=== PATIENT | male | born 1950 | race Caucasian/White ===

== ENCOUNTER 2018-12-17 17:19 | Inpatient (IN) | payer OTHER ==
[~2018-12-17] VITALS: Ht 180.3 cm; Wt 99.0 kg
[2018-12-17 17:39] VITALS: Ht 180.3 cm; Wt 99.0 kg
[2018-12-17 18:45] LABS: BASOPHIL % 0.3 % (0-2); PLATELET COUNT 286 x10^3mcL (130-400); RED CELL DISTRIBUTION WIDTH 17.2 % (11.5-14.5)
[2018-12-17] MEDS ORDERED: ATENOLOL100 MG PO (18:50)
[2018-12-17 18:51] LABS: CALCIUM 8.4 mg/dL (8.5-10.1); CARBON DIOXIDE 31.3 mmol/L (21-32); CREATININE SERUM 1.5 mg/dL (0.7-1.3)
[2018-12-17] MEDS ORDERED: [UNRECOGNIZED DRUG - OTHER] PO (18:52)
[2018-12-17] MEDS ORDERED: HYDROXYZINE HYD25 MG PO (18:53)
[2018-12-17] MEDS ORDERED: NEU300 PO (18:54)
[2018-12-17 18:56] LABS: ALBUMIN 3.6 g/dL (3.4-5.0); BILIRUBIN TOTAL 0.45 mg/dL (0.20-1.00); TOTAL PROTEIN, SERUM 6.6 g/dL (6.4-8.2)
[2018-12-17 19:15] LABS: PLATELET COUNT 275 x10^3mcL (130-400); RED CELL DISTRIBUTION WIDTH 17.5 % (11.5-14.5)
[2018-12-17 19:46] LABS: T3 TOTAL 0.97 ng/mL
[2018-12-17 20:06] LABS: FREE THYROXINE INDEX 2.4 ug/dL (1.4-4.5); T4(THYROXINE) 6.7 ug/dL (4.7-13.3)
[2018-12-17 20:22] LABS: CHOLESTEROL/HDL RATIO 3.4; PHOSPHOROUS 2.6 mg/dL (2.5-4.9)
[2018-12-17 21:41] VITALS: BP 129/62
[2018-12-17 22:43] VITALS: BP 198/93
[2018-12-18 01:01] LABS: microscopic required? YES; urine erythrocyte NEGATIVE (NEGATIVE)
[2018-12-18 01:11] LABS: AMPHETAMINE QUAL UR NONE DETECTED (See below)
[2018-12-18 04:05] VITALS: BP 114/67
[2018-12-18 06:36] LABS: CALCIUM 7.8 mg/dL (8.5-10.1); CARBON DIOXIDE 28.9 mmol/L (21-32); CREATININE SERUM 1.5 mg/dL (0.7-1.3); POTASSIUM SERUM 4.3 mmol/L (3.5-5.1)
[2018-12-18 06:52] LABS: BASOPHIL % 0.2 % (0-2); PLATELET COUNT 233 x10^3mcL (130-400)
[2018-12-18 07:36] LABS: RED CELL DISTRIBUTION WIDTH 17.2 % (11.5-14.5)
[2018-12-18 08:41] VITALS: BP 99/57
[2018-12-18 16:15] VITALS: BP 125/59
[2018-12-18 20:00] VITALS: BP 97/54
[2018-12-19 06:27] VITALS: BP 107/65
[2018-12-19 07:03] LABS: BASOPHIL % 0.1 % (0-2); PLATELET COUNT 195 x10^3mcL (130-400)
[2018-12-19 07:22] LABS: RED CELL DISTRIBUTION WIDTH 17.3 % (11.5-14.5)
[2018-12-19 07:28] LABS: CALCIUM 7.9 mg/dL (8.5-10.1); CARBON DIOXIDE 26.1 mmol/L (21-32); CREATININE SERUM 1.6 mg/dL (0.7-1.3); MAGNESIUM 1.7 mg/dL (1.8-2.4); PHOSPHOROUS 2.1 mg/dL (2.5-4.9); POTASSIUM SERUM 4.5 mmol/L (3.5-5.1)
[2018-12-19 09:19] VITALS: BP 96/53
[2018-12-19 17:01] VITALS: BP 109/55
[2018-12-19 20:46] VITALS: BP 105/49
[2018-12-20 05:41] VITALS: BP 99/60
[2018-12-20 06:56] LABS: BASOPHIL % 0.5 % (0-2); PLATELET COUNT 173 x10^3mcL (130-400)
[2018-12-20 07:23] LABS: CALCIUM 7.7 mg/dL (8.5-10.1); CARBON DIOXIDE 27.1 mmol/L (21-32); CREATININE SERUM 1.3 mg/dL (0.7-1.3); MAGNESIUM 1.8 mg/dL (1.8-2.4)
[2018-12-20 07:58] VITALS: BP 113/60
[2018-12-20 17:24] VITALS: BP 120/60
[2018-12-20 20:46] VITALS: BP 121/70
[2018-12-21 04:36] VITALS: BP 120/66
[2018-12-21 06:49] LABS: BASOPHIL % 0.5 % (0-2); PLATELET COUNT 192 x10^3mcL (130-400)
[2018-12-21 07:02] LABS: RED CELL DISTRIBUTION WIDTH 16.3 % (11.5-14.5)
[2018-12-21 07:06] LABS: CALCIUM 7.4 mg/dL (8.5-10.1); CARBON DIOXIDE 26.2 mmol/L (21-32); CREATININE SERUM 1.3 mg/dL (0.7-1.3); POTASSIUM SERUM 4.3 mmol/L (3.5-5.1)
[2018-12-21 08:06] VITALS: BP 131/71
[2018-12-21 15:51] VITALS: BP 114/71
[2018-12-21 19:43] VITALS: BP 142/80
[2018-12-22 05:09] VITALS: BP 121/74
[2018-12-22 07:03] LABS: BASOPHIL % 0.4 % (0-2); PLATELET COUNT 211 x10^3mcL (130-400)
[2018-12-22 07:13] LABS: CALCIUM 8.1 mg/dL (8.5-10.1); CARBON DIOXIDE 27.1 mmol/L (21-32); CHLORIDE SERUM 109 mmol/L (98-107); CREATININE SERUM 1.2 mg/dL (0.7-1.3); GFR1 > 60 mL/min; GLUCOSE SERUM 82 mg/dL (74-106); SODIUM SERUM 142 mmol/L (136-145)
[2018-12-22 07:42] LABS: RED CELL DISTRIBUTION WIDTH 17.1 % (11.5-14.5)
[2018-12-22 08:12] VITALS: BP 130/62
[2018-12-22] MEDS ORDERED: NORCO1 TA2 PO (10:46)
[2018-12-22 16:18] VITALS: BP 122/67
[2018-12-22 20:13] VITALS: BP 127/63
[2018-12-23 05:14] VITALS: BP 131/70
[2018-12-23 07:50] VITALS: BP 118/54
[2018-12-23 16:32] VITALS: BP 132/75; BP 142/74
[2018-12-23 17:59] VITALS: BP 132/75
[2018-12-23 19:45] VITALS: BP 130/75
== END 2018-12-23 19:53 | DRG 480 ==
LOC: ED 17:19 → MU 19:09
PROVIDERS: Emergency Medicine; Neuromusculoskeletal Medicine, Sports Medicine; ADMIT Internal Medicine
PROC: 0QS704Z Reposition Left Upper Femur with Internal Fixation Device, Open Approach (ICD-10-PCS; principal; 2018-12-18 12:00)
DX: S72.092A Other fracture of head and neck of left femur, initial encounter for closed fracture (principal); N17.0 Acute kidney failure with tubular necrosis; S80.212A Abrasion, left knee, initial encounter; M06.9 Rheumatoid arthritis, unspecified; M79.7 Fibromyalgia; I10 Essential (primary) hypertension; K21.9 Gastro-esophageal reflux disease without esophagitis; W01.0XXA Fall on same level from slipping, tripping and stumbling without subsequent striking against object, initial encounter; Y93.89 Activity, other specified; Y92.89 Other specified places as the place of occurrence of the external cause; Z68.27 Body mass index [BMI] 27.0-27.9, adult
CPT/HCPCS: 83880; 84439; 94150; 97110-GP; 97116-GP; 97530-GP; C1776; G0378; J0690; J1170; J1644; J1885; J2270; J2405; J2704; J3010; J3490; J7030; J7120; Q0092; Q0162

== ENCOUNTER → 2019-04-06 | Outpatient (CLI) | payer OTHER ==
[~2019-04-06] MED LIST: ATENOLOL100 MG PO; HYDROXYZINE HYD25 MG PO; NEU300 PO; NORCO1 TA2 PO; [UNRECOGNIZED DRUG - OTHER] PO
== END | disposition home or self-care (01) ==
LOC: RD 10:21
DX: S72.002D Fracture of unspecified part of neck of left femur, subsequent encounter for closed fracture with routine healing (principal); X58.XXXD Exposure to other specified factors, subsequent encounter